=== PATIENT | female | born 1975 | race Caucasian/White ===

== ENCOUNTER 2022-01-08 00:43 | Emergency (ER) | payer OTHER ==
[~2022-01-08 00:43] MED LIST: NAPROXEN500 MG PO
[2022-01-08 00:56] LABS: HCT 40.7 % (37.0-47.0); HGB 12.9 g/dl (12.5-16.0); MCH 31.5 pg (25.0-31.0); MCHC 31.7 g/dL (32.0-36.0); MCV 99.5 fL (78.0-100.0); MPV 10.1 fL (6.0-9.5); RBC 4.09 M/uL (4.20-5.40); RDW 12.3 % (11.5-14.0)
[2022-01-08 01:07] LABS: INR 1.19 (0.9-1.2); PROTHROMBIN TIME 14.5 SECONDS (11.8-13.4); PTT 31.2 SECONDS (24.4-34.7)
[2022-01-08 01:16] LABS: ALBUMIN 3.4 g/dL (3.4-5.0); BILIRUBIN - TOTAL 0.4 mg/dL (0.2-1.0); BUN/CREAT RATIO (CALC) 7.6 RATIO; CREATININE 1.18 mg/dL (0.51-0.95); GLOBULIN (CALCULATION) 2.8 g/dL; POTASSIUM 2.8 mmol/L (3.5-5.1); TOTAL PROTEIN 6.2 g/dL (6.4-8.2)
[2022-01-08 01:22] LABS: D-DIMER 10.77 ug/mLFEU (0.00-0.41)
== END 2022-01-08 01:35 | disposition other institution (70) ==
LOC: FER 00:43
DX: S06.9X9A Unspecified intracranial injury with loss of consciousness of unspecified duration, initial encounter (principal); T14.8XXA Other injury of unspecified body region, initial encounter; J96.91 Respiratory failure, unspecified with hypoxia; Z88.0 Allergy status to penicillin; V87.8XXA Person injured in other specified noncollision transport accidents involving motor vehicle (traffic), initial encounter; Y92.410 Unspecified street and highway as the place of occurrence of the external cause
CPT/HCPCS: 36415; 71045; 80053; 84484; 85379; 85610; 85730